=== PATIENT | female | born 1965 | race American Indian/Alaskan Native ===

== ENCOUNTER 2017-07-28 05:27 | Inpatient (IN) | payer BC ==
[2017-07-28] MEDS ORDERED: Scopolamine 1.5 MG Transdermal Patch TOP ONE (05:49)
[2017-07-28] MEDS ORDERED: Acetaminophen 500 MG Tab PO ONE (05:49)
[2017-07-28] MEDS ORDERED: Celecoxib 200 MG Cap PO ONE (05:50)
[2017-07-28] MEDS ORDERED: Gabapentin 300 MG Cap PO ONE (05:51)
[2017-07-28] MEDS ORDERED: cefOXitin 2 GM Vial ONE (06:48)
[2017-07-28] MEDS ORDERED: Dextrose 5%-Lactated Ringers 1,000 ML IV SCH (07:00)
[2017-07-28] MEDS ORDERED: Dexamethasone 4 MG/ML SDV ONE (07:16)
[2017-07-28] MEDS ORDERED: Glycopyrrolate 0.2 MG/ML 5 ML MDV ONE (07:16)
[2017-07-28] MEDS ORDERED: Ondansetron 4 MG/2 ML SDV ONE (07:16)
[2017-07-28] MEDS ORDERED: Rocuronium 50 MG/5 ML Vial ONE ×2 (07:16→09:03)
[2017-07-28] MEDS ORDERED: Succinylcholine 200 MG/10 ML MDV ONE (07:16)
[2017-07-28] MEDS ORDERED: Propofol 200 MG/20 ML SDV ONE (07:16)
[2017-07-28] MEDS ORDERED: Lactated Ringers 1,000 ML ONE ×2 (07:16→09:47)
[2017-07-28] MEDS ORDERED: Scopolamine 1.5 MG Transdermal Patch ONE (07:16)
[2017-07-28] MEDS ORDERED: Neostigmine Methylsulfate 1 MG/ML 5 ML Syringe ONE (07:16)
[2017-07-28] MEDS ORDERED: cefOXitin 2 GM in Sodium Chloride 0.9% 50 ML IV ONE (07:45)
[2017-07-28] MEDS ORDERED: Albuterol/Ipratropium 3.0-0.5 MG/3 ML Neb Soln NEB ONE (07:45)
[2017-07-28] MEDS ORDERED: Lidocaine 2% 100 MG/5 ML Syringe IVPUSH ONE (08:00)
[2017-07-28] MEDS ORDERED: Ropivacaine 54 ML, Dexamethasone 8 MG, EPINEPHrine 0.4 MG, Sodium Chloride 0.9% 23.6 ML NERVRT SCH ×4 (08:00)
[2017-07-28] MEDS ORDERED: Ketamine 500 MG/5 ML MDV IV SCH (08:00)
[2017-07-28] MEDS ORDERED: ceFAZolin 1 GM Vial ONE (08:04)
[2017-07-28] MEDS: cefOXitin 2 GM in Sodium Chloride 0.9% 50 ML IV ONE ×2 (08:16→09:30)
[2017-07-28] MEDS ORDERED: hydrOXYzine HCl 100 MG/2 ML SDV IM ONE (10:40)
[2017-07-28] MEDS ORDERED: fentaNYL 100 MCG/2 ML SDV IVPUSH ONE (11:00)
[2017-07-28] MEDS ORDERED: Albuterol/Ipratropium 3.0-0.5 MG/3 ML Neb Soln ONE (12:42)
[2017-07-28] MEDS ORDERED: HYDROmorphone 1 MG/ML Syringe IVPUSH ONE (12:45)
[2017-07-28] MEDS ORDERED: hydrOXYzine HCl 100 MG/2 ML SDV IM PRN (13:00)
[2017-07-28] MEDS ORDERED: Ondansetron 4 MG/2 ML SDV IVPUSH PRN (13:00)
[2017-07-28] MEDS ORDERED: diphenhydrAMINE 50 MG/ML SDV IVPUSH PRN (13:00)
[2017-07-28] MEDS ORDERED: SCOPOLAMINE PATCH ASK TOP SCH (13:00)
[2017-07-28] MEDS ORDERED: Pantoprazole 40 MG Vial IVPUSH SCH (13:00)
[2017-07-28] MEDS ORDERED: Labetalol 20 MG/4 ML Syringe IVPUSH PRN (13:00)
[2017-07-28] MEDS ORDERED: Albuterol/Ipratropium 3.0-0.5 MG/3 ML Neb Soln INH PRN (13:00)
[2017-07-28] MEDS ORDERED: Metoclopramide 10 MG/2 ML SDV IVPUSH PRN (13:00)
[2017-07-28] MEDS: Dextrose 5%-Lactated Ringers 1,000 ML IV SCH (13:19)
[2017-07-28] MEDS: Lidocaine 0.4%/D5W 2 GM/500 ML BAG IV SCH (13:27)
[2017-07-28] MEDS: cefOXitin 2 GM in Sodium Chloride 0.9% 50 ML IV SCH ×2 (13:52→20:34)
[2017-07-28] MEDS: Albuterol/Ipratropium 3.0-0.5 MG/3 ML Neb Soln INH SCH ×2 (14:38→22:22)
[2017-07-28] MEDS: Gabapentin 300 MG Cap PO SCH ×2 (15:09→22:13)
[2017-07-28] MEDS: Acetaminophen 325 MG Tab PO SCH ×2 (15:09→22:13)
[2017-07-28] MEDS: HYDROmorphone 1 MG/ML Syringe IVPUSH PRN ×2 (15:17→18:47)
[2017-07-28] MEDS ORDERED: MVI, Adult with Vitamin K 10 ML, Thiamine 200 MG, Chromium/Copper/Mang/Selen/Zn 1 ML in... IV SCH ×4 (16:00)
[2017-07-29] MEDS: Dextrose 5%-Lactated Ringers 1,000 ML IV SCH (00:07)
[2017-07-29] MEDS: Lidocaine 0.4%/D5W 2 GM/500 ML BAG IV SCH (00:43)
[2017-07-29] MEDS: cefOXitin 2 GM in Sodium Chloride 0.9% 50 ML IV SCH (02:15)
[2017-07-29] MEDS: HYDROmorphone 1 MG/ML Syringe IVPUSH PRN (02:15)
[2017-07-29] MEDS: Acetaminophen 325 MG Tab PO SCH ×2 (03:43→09:44)
[2017-07-29] MEDS: Gabapentin 300 MG Cap PO SCH (05:15)
[2017-07-29] MEDS: Albuterol/Ipratropium 3.0-0.5 MG/3 ML Neb Soln INH SCH ×4 (07:06→22:06)
[2017-07-29] MEDS: Celecoxib 200 MG Cap PO SCH (07:24)
[2017-07-29] MEDS ORDERED: Albuterol 8 GM Inhaler INH PRN (07:58)
[2017-07-29] MEDS ORDERED: Ondansetron 4 MG Tab.DIS PO PRN (08:00)
[2017-07-29] MEDS ORDERED: HYDROmorphone 2 MG Tab PO PRN (08:04)
--- NOTE | 2017-07-29 09:21 | PN ---
DATE OF SERVICE: 07/29/2017 SUBJECTIVE: Giselle is postop day 1 following a Andrez-en-Y gastric bypass surgery. Heparin was not started due to increased bleeding during surgery and she is prone to bleeding. She has been up ambulating frequently. Her output was 4 L. She has had oral intake of 840. Pain was managed with extra p.r.n. doses of Dilaudid during the night. She has no other concerns or questions today. OBJECTIVE: GENERAL: Giselle is a 51-year-old female. VITAL SIGNS: TPR is 99.5, 69, 16, blood pressure is 170/82. HEENT: Negative. NECK: Supple. HEART: Regular rate and rhythm. LUNGS: Clear. ABDOMEN: Dressings dry and intact. Abdominal binder is on. She has 1 EVELYN drain and it is draining a light pink serous drainage of 110 mL of a red drainage. ASSESSMENT: Status post Andrez-en-Y gastric bypass surgery. PLAN: IV infiltrated earlier this morning, so we will discontinue IV and IV meds. Dilaudid 2 mg 1 to 2 every 4 hours p.r.n. pain. Heparin as stated was not started due to patient being prone to bleeding. Her home medications were started. Gabapentin was changed to 600 mg p.o. t.i.d. which is her normal dose that she gets at home, trazodone 100 mg at bedtime, Effexor 75 mg p.o. b.i.d. She is getting the DuoNeb q.i.d. Dressing off, may shower. Good pulmonary toilet. We will evaluate p.r.n. or in a.m. Chasity Samayoa PA-C /[id number]
[2017-07-29] MEDS: Venlafaxine 75 MG Tab PO SCH ×2 (09:37→22:06)
[2017-07-29] MEDS: SCOPOLAMINE PATCH CHECK TOP SCH (09:39)
[2017-07-29] MEDS: Gabapentin 250 MG/5 ML Solution ML 470 ML Bottle PO SCH ×3 (09:43→22:06)
--- NOTE | 2017-07-29 13:33 | OR ---
DATE OF PROCEDURE: 07/28/2017 PREOPERATIVE DIAGNOSIS: Morbid obesity. POSTOPERATIVE DIAGNOSES: 1. Morbid obesity. 2. Marked hepatomegaly. 3. Paraesophageal diaphragmatic hernia. OPERATIVE PROCEDURES: 1. Laparoscopic Andrez-en-Y gastric bypass with long limb gastroenterostomy (07012). 2. Kelton-Cut needle liver biopsy (11212). 3. Repair of paraesophageal diaphragmatic hernia (53730). ANESTHESIA: General. AIRCRAFT ENGINE MECHANIC: Chasity Samayoa PA-C. INDICATION FOR PROCEDURE: This is a 51-year-old female presenting with longstanding morbid obesity and increasingly significant comorbidities. After preoperative evaluation and discussion, she wished to proceed with a gastric bypass procedure. Potential risks of procedure including bleeding, infection, leaks from various GI tract closures, problems with bowel obstruction over time, as well as possibility of cardiopulmonary, septic, or hemorrhagic complications leading to were all discussed, and the patient wishes to proceed. DETAILS OF PROCEDURE: The patient was taken to the operating room and placed in a supine position. After general endotracheal anesthesia was induced, she was converted to a lithotomy position. Under continuous ultrasound guidance, bilateral subcostal transversus abdominis plane blocks were placed using standard formula. The abdomen was then prepped and draped, and an orogastric tube was placed. At 15 cm inferior, 5 cm left of xiphoid process, transverse incision was made and the peritoneal cavity entered under direct vision with Optiview trocar and inflated to 15 mmHg pressure with CO2. Laparoscope was then reinserted. No underlying trocar insertion site injuries were seen. Following this, 5 additional trocars were placed across the upper mid abdomen, and general exploration was undertaken. The patient was noted to have marked hepatomegaly with liver volume being roughly 2 to 3 times normal and the liver grossly fatty infiltrated. Kelton-Cut needle biopsies were obtained from left lobe of liver. Minimal bleeding from the biopsy site was controlled with electrocautery. The omentum was then divided in the midline up to the level of the transverse colon. This allowed identification of the small bowel to the ligament of Treitz. Small bowel was then traced out 200 cm distal to that point and was divided transversely with a BRYAN stapler. Small bowel was then traced out an additional 150 cm, where the qjnc-aw-siou enteroenterostomy was accomplished with internal firing of the Endo-BRYAN 60 mm stapler. The common opening was then closed transversely with same stapler, angles anastomosed, and the mesenteric defect approximated with some 0 Ethibond stitch, along with fibrin sealant. The divided end of the Andrez limb was then from the mesentery for a few centimeters, which allowed an antecolic position of the Andrez limb up to the level of the gastroesophageal junction without tension. The liver was retracted anteriorly. The patient was noted to have a degree of paraesophageal diaphragmatic hernia with prolapse of some perigastric fat in the fundus of the stomach in a plane anterior to the course of the esophagus. This was reduced and the peritoneum overlying incised and reflected downward. An anterior repair of the diaphragmatic hernia was then accomplished with 0 Ethibond sutures, reinforced with PTFE pledgets. The gastrointestinal balloon catheter was then inflated to 15 mL and pulled up snugly against the EG junction. The gastric wall over the apex of the balloon was then marked with electrocautery, and the balloon catheter deflated and pulled up from the esophagus. The lesser omental tissue adjacent to the gastric cardia was incised, allowing dissection behind the stomach at that level. Pouch formation was then initiated with a transverse firing of the BRYAN stapler at the level of the cauterized marked in the gastric cardia. Pouch was then completed with 2 additional firings of BRYAN stapler up to and through the angle of His. Upon completion of the pouch, both staple lines were noted to be intact. The anvil of a 25 mm EEA stapler was then attached to Dawson sump type tube that was taken out through small opening in the gastric pouch and allowing the anvil likewise to be pulled down to within the gastric pouch. The divided end of the Andrez limb was then opened, and the main of body of EEA stapler was passed several centimeters into the lumen of the small bowel, brought up the anvil and united with it, thus creating the gastrojejunostomy. Upon removal of stapler, double donuts of mucosa were noted within it. The small bowel was closed off with a vascular staple line. Gastrojejunostomy was then reinforced with some 3-0 Vicryl seromuscular stitch, along with fibrin sealant. Leak test was accomplished with injection of 120 mL of air in the gastric pouch while submerged with cefoxitin-containing saline solution. No leaks were identified. A single Adam-Mendoza drain was then placed through the left lateral trocar site and positioned against the gastrojejunostomy and up into the splenic fossa. At that point, no further problems noted. Trocars were removed and the peritoneal cavity was deflated. Incisions were closed with some 4-0 Vicryl skin stitch and drain affixed with 4-0 Vicryl stitch as well. The patient was taken to the recovery room in satisfactory condition. Physician electrician station assistant, Chasity Samayoa, played an essential role in assisting in this case, helping to position the patient, retract structures as needed, as well as suturing and cutting sutures as indicated. Her presence improved patient safety and decreased operative time. Jean Marie Cohen MD /[id number]
[2017-07-29] MEDS: Acetaminophen Soln 650 MG/20.3 ML UD Cup PO SCH ×2 (15:04→22:06)
[2017-07-29] MEDS ORDERED: traZODone 50 MG Tab PO SCH (21:00)
[2017-07-30] MEDS: Acetaminophen Soln 650 MG/20.3 ML UD Cup PO SCH ×2 (04:11→09:01)
[2017-07-30] MEDS: Albuterol/Ipratropium 3.0-0.5 MG/3 ML Neb Soln INH SCH ×2 (07:18→10:56)
[2017-07-30] MEDS ORDERED: Cyanocobalamin (Vitamin B12) 1,000 MCG/ML SDV IM ONE (09:00)
[2017-07-30] MEDS: Venlafaxine 75 MG Tab PO SCH (09:03)
[2017-07-30] MEDS: Celecoxib 200 MG Cap PO SCH (09:03)
[2017-07-30] MEDS: SCOPOLAMINE PATCH CHECK TOP SCH (09:13)
[2017-07-30] MEDS: Gabapentin 250 MG/5 ML Solution ML 470 ML Bottle PO SCH (09:27)
--- NOTE | 2017-07-30 10:15 | DISCH ---
ADMISSION DIAGNOSES: 1. Morbid obesity, BMI 36.5. 2. Obstructive sleep apnea with use of CPAP, impaired glucose tolerance. 3. Fibromyalgia. 4. Osteoarthritis. DISCHARGE DIAGNOSES: 1. Laparoscopic Andrez-en-Y gastric bypass surgery with long limb gastroenterostomy. 2. Kelton-Cut needle liver biopsy. 3. Repair of paraesophageal diaphragmatic hernia for morbid obesity, marked hepatomegaly, and periesophageal diaphragmatic hernia. HISTORY: Giselle Mao is a 51-year-old female with longstanding history of morbid obesity and increasingly significant comorbidities. After preoperative evaluation and discussion of possible risks and possible complications, she wished to proceed with surgical procedure. HOSPITAL COURSE: Giselle had her surgery on 07/28/2017. She had no operative complications. On postop day #1, she was started on a step-2 gastric bypass diet without cereal. Her activity was good. Vital signs were stable. Oral intake adequate. She received dietary instructions. On postop day #2, she was ready to be discharged to home. DISCHARGE PHYSICAL EXAMINATION: GENERAL: Giselle Mao is a 51-year-old female. VITAL SIGNS: Height is 5 feet 8 inches. Weight is 240 pounds. BMI is 36.5. TPR 99, 98, 20. Blood pressure 144/73. HEENT: Negative. NECK: Supple. HEART: Regular rate and rhythm. LUNGS: Clear. ABDOMEN: Sutures look good. Abdominal binder has been on, 4 x 4, over EVELYN drain, after removal. EXTREMITIES: Without peripheral edema. DISPOSITION: Discharged to home. CONDITION: Stable and improving. FOLLOWUP: With Chasity Samayoa PA-C, on 08/07/2017 at 10:00 a.m. DISCHARGE MEDICATIONS: 1. Tylenol 650 mg/20.3 mL q.6 hours x14 days. 2. Zofran ODT 4 mg q.4 hours p.r.n. nausea, sublingual, #30. She is to resume her home medications of Ventolin, albuterol inhaler one puff as directed for shortness of breath, Celebrex 200 mg p.o. daily for 14 days, Neurontin 600 mg oral 3 times a day, Effexor 75 mg oral twice daily, and trazodone 100 mg at bedtime. DISCHARGE DIET: Step-2 gastric bypass diet without cereal. Drink 8 to 10 glasses of water a day. ACTIVITY: As tolerated. To walk at least 6 times daily inside your home. Lifting, no lifting greater than 10 pounds for 2 weeks. Driving, do not drive for 1 week. May shower. Keep operative site clean and dry. Wear abdominal binder for 2 weeks and then as tolerated. Notify provider if any fever, increased pain, nausea, or vomiting. SPECIAL INSTRUCTIONS: Use incentive spirometer 10 times in a row every hour while awake and keep a record of protein and liquid intake daily and bring to clinic appointments.
[2017-07-30 10:41] VITALS: BP 148/77
== END 2017-07-30 10:50 | disposition home or self-care (01) | DRG 403 ==
LOC: JP.SDS 05:27 → JP.MS 05:27 → EDSTATUS 07:30 → JP.2SS 10:15
PROVIDERS: ADMIT Surgery; ATTEND Surgery
PROC: 0D164ZA Bypass Stomach to Jejunum, Percutaneous Endoscopic Approach (ICD-10-PCS; principal; 2017-07-28)
PROC: 3E0T3BZ Introduction of Anesthetic Agent into Peripheral Nerves and Plexi, Percutaneous Approach (ICD-10-PCS; 2017-07-28)
PROC: 0FB24ZX Excision of Left Lobe Liver, Percutaneous Endoscopic Approach, Diagnostic (ICD-10-PCS; 2017-07-28)
PROC: 0BQS4ZZ (ICD-10-PCS; 2017-07-28)
PROC: 0BQR4ZZ (ICD-10-PCS; 2017-07-28)
DX: E66.01 Morbid (severe) obesity due to excess calories (principal); Z68.37 Body mass index [BMI] 37.0-37.9, adult; R16.0 Hepatomegaly, not elsewhere classified; K44.9 Diaphragmatic hernia without obstruction or gangrene; K76.0 Fatty (change of) liver, not elsewhere classified; G47.33 Obstructive sleep apnea (adult) (pediatric); R73.02 Impaired glucose tolerance (oral); M79.7 Fibromyalgia; M19.90 Unspecified osteoarthritis, unspecified site; Z91.041 Radiographic dye allergy status; Z88.5 Allergy status to narcotic agent
CPT/HCPCS: 36415; 82962; 83036; 86850; 86900; 86901; 88307; 88313; 94640-76; A9270-GY; C9113; J0171; J0330; J0690; J0694; J1100; J1170; J2001; J2405; J2704; J2710; J2795; J3010; J3410; J3411; J3420; J7030; J7042; J7050; J7120; J7620

== ENCOUNTER 2018-07-11 19:17 | Inpatient (IN) | payer BC ==
[2018-07-11] MEDS ORDERED: Ondansetron 4 MG/2 ML SDV IV PRN (19:40)
[2018-07-11] MEDS ORDERED: Naloxone 0.4 MG/ML SDV IVPUSH PRN (19:49)
[2018-07-11] MEDS ORDERED: HYDROmorphone/Normal Saline 15 MG/30 ML PCA IV SCH (20:00)
[2018-07-11] MEDS: Dextrose 5%-Lactated Ringers 1,000 ML IV SCH (20:36)
[2018-07-12] MEDS: Dextrose 5%-Lactated Ringers 1,000 ML IV SCH (04:14)
[2018-07-12] MEDS ORDERED: Meropenem 500 MG SDV ONE (06:57)
[2018-07-12] MEDS ORDERED: Succinylcholine 200 MG/10 ML MDV ONE (07:10)
[2018-07-12] MEDS ORDERED: Ondansetron 4 MG/2 ML SDV ONE (07:10)
[2018-07-12] MEDS ORDERED: Dexamethasone 4 MG/ML SDV ONE (07:10)
[2018-07-12] MEDS ORDERED: Glycopyrrolate 0.2 MG/ML 5 ML MDV ONE (07:10)
[2018-07-12] MEDS ORDERED: Rocuronium 50 MG/5 ML Vial ONE (07:10)
[2018-07-12] MEDS ORDERED: Neostigmine Methylsulfate 1 MG/ML 5 ML Syringe ONE (07:10)
[2018-07-12] MEDS ORDERED: Propofol 200 MG/20 ML SDV ONE (07:10)
[2018-07-12] MEDS: cefOXitin 2 GM in Sodium Chloride 0.9% 50 ML IV ONE ×2 (07:45→10:49)
[2018-07-12] MEDS ORDERED: Ketamine 500 MG/5 ML MDV IV SCH (08:00)
[2018-07-12] MEDS ORDERED: Ropivacaine 35 ML, Dexamethasone 8 MG, EPINEPHrine 0.4 MG, Sodium Chloride 0.9% 42.6 ML NERVRT SCH ×4 (08:00)
[2018-07-12] MEDS ORDERED: Lidocaine 2% 100 MG/5 ML Syringe IVPUSH ONE (08:00)
[2018-07-12] MEDS ORDERED: Lactated Ringers 1,000 ML ONE (08:32)
[2018-07-12] MEDS ORDERED: Sugammadex Sodium 200 MG/2 ML VIAL ONE (08:54)
[2018-07-12] MEDS ORDERED: Dextrose 5%-Lactated Ringers 1,000 ML IV SCH (10:30)
[2018-07-12] MEDS: Lidocaine 0.4%/D5W 2 GM/500 ML BAG IV SCH (10:49)
[2018-07-12] MEDS ORDERED: diphenhydrAMINE 50 MG/ML SDV IVPUSH PRN (11:00)
[2018-07-12] MEDS ORDERED: Metoclopramide 10 MG/2 ML SDV IVPUSH PRN (11:00)
[2018-07-12] MEDS ORDERED: hydrOXYzine HCl 100 MG/2 ML SDV IM PRN (11:00)
[2018-07-12] MEDS ORDERED: Labetalol 20 MG/4 ML Syringe IVPUSH PRN (11:00)
[2018-07-12] MEDS: cefOXitin 2 GM in Sodium Chloride 0.9% 50 ML IV SCH ×2 (12:00→18:50)
[2018-07-12] MEDS: Acetaminophen Soln 650 MG/20.3 ML UD Cup PO SCH ×2 (13:17→19:51)
[2018-07-12] MEDS: Gabapentin 250 MG/5 ML Solution ML 470 ML Bottle PO SCH ×2 (13:18→21:36)
[2018-07-12] MEDS ORDERED: Pantoprazole 40 MG Vial IVPUSH SCH (14:00)
[2018-07-12] MEDS: Heparin Sodium 5,000 Units/ML Vial SUBCUT SCH (15:24)
--- NOTE | 2018-07-12 15:46 | PN ---
DATE OF SERVICE: 07/12/2018 SUBJECTIVE: The patient was transferred from [place] last evening with a small bowel volvulus. She has been comfortable overnight and is with an n.p.o. status. Plan will be to proceed with an open laparotomy today and release of bowel obstruction, closure of mesenteric defects, and bowel resection as indicated. We will also check some bariatric labs this morning. Potential risks of the procedure were reviewed with the patient and she wishes to proceed. Jean Marie Cohen MD /[id number]
[2018-07-12] MEDS ORDERED: MVI, Adult with Vitamin K 10 ML, Thiamine 200 MG, Chromium/Copper/Mang/Selen/Zn 1 ML in... IV SCH ×4 (16:00)
[2018-07-12] MEDS: traZODone 50 MG Tab (PTOM) PO SCH (21:36)
[2018-07-12] MEDS: VENLAFAXINE 75 MG PO SCH (21:36)
[2018-07-13] MEDS: cefOXitin 2 GM in Sodium Chloride 0.9% 50 ML IV SCH (01:17)
[2018-07-13] MEDS: Acetaminophen Soln 650 MG/20.3 ML UD Cup PO SCH ×4 (01:18→20:29)
[2018-07-13] MEDS: Heparin Sodium 5,000 Units/ML Vial SUBCUT SCH ×2 (04:49→16:29)
[2018-07-13] MEDS: Celecoxib 200 MG Cap PO SCH (07:12)
[2018-07-13] MEDS ORDERED: Dextrose 5%-Lactated Ringers 1,000 ML IV SCH (07:30)
[2018-07-13] MEDS: HYDROmorphone 2 MG Tab PO PRN ×4 (07:53→20:28)
[2018-07-13] MEDS: VENLAFAXINE 75 MG PO SCH ×2 (09:42→20:29)
[2018-07-13] MEDS: Gabapentin 250 MG/5 ML Solution ML 470 ML Bottle PO SCH ×3 (09:44→20:33)
[2018-07-13] MEDS: Lidocaine 0.4%/D5W 2 GM/500 ML BAG IV SCH (09:45)
[2018-07-13] MEDS ORDERED: Pantoprazole 40 MG Tab.CR PO SCH (14:00)
[2018-07-13] MEDS ORDERED: MVI, Adult with Vitamin K 10 ML, Thiamine 200 MG, Chromium/Copper/Mang/Selen/Zn 1 ML in... IV SCH ×4 (16:00)
[2018-07-13] MEDS: traZODone 50 MG Tab (PTOM) PO SCH (20:29)
[2018-07-14] MEDS: Acetaminophen Soln 650 MG/20.3 ML UD Cup PO SCH ×2 (01:36→07:13)
[2018-07-14] MEDS: HYDROmorphone 2 MG Tab PO PRN ×2 (01:36→05:46)
[2018-07-14] MEDS: Heparin Sodium 5,000 Units/ML Vial SUBCUT SCH (03:40)
[2018-07-14] MEDS: Celecoxib 200 MG Cap PO SCH (07:13)
[2018-07-14 07:33] VITALS: BP 141/77
[2018-07-14] MEDS ORDERED: Cyanocobalamin (Vitamin B12) 1,000 MCG/ML SDV IM ONE (09:00)
[2018-07-14] MEDS: VENLAFAXINE 75 MG PO SCH (09:06)
[2018-07-14] MEDS: Gabapentin 250 MG/5 ML Solution ML 470 ML Bottle PO SCH (09:13)
--- NOTE | 2018-07-14 11:48 | PN ---
DATE OF SERVICE: 07/13/2018 The patient has been afebrile with stable vital signs. No major problems have been noted overnight. The pain control appears to be fairly good. We will switch over to oral Dilaudid, in addition to the Celebrex, gabapentin, and Tylenol today. We will leave her on the step-3 diet and have her get in the shower. She may be ready for discharge home tomorrow. Intact PTH level is still pending. Jean Marie Cohen MD /[id number]
--- NOTE | 2018-07-14 14:09 | DISCH ---
FINAL DIAGNOSES: 1. Small bowel volvulus with associated internal hernia. 2. Incarcerated incisional hernia. 3. Extensive intraperitoneal adhesions. 4. Bariatric surgery status, status post previous gastric bypass. SECONDARY DIAGNOSES: 1. Fibromyalgia. 2. Impaired glucose tolerance. 3. Obstructive sleep apnea. OPERATIVE PROCEDURES: This was done on 07/12/2018; exploratory laparotomy with lysis of adhesions and: 1. Reduction of small bowel volvulus and closure of internal hernia. 2. Repair of incarcerated incisional hernia. 3. Mobilization of omentum into pelvis to limit recurrent adhesion formation. HOSPITAL COURSE: This is a 52-year-old, status post previous Andrez-en-Y gastric bypass, presenting with a picture of abdominal pain and workup consistent of a small bowel volvulus. She was transferred from [facility] and admitted here, and subsequently underwent exploratory laparotomy with the above-noted procedures. Postoperatively, no major problems were noted. She is presently tolerating the soft solid diet satisfactorily and pain control is adequate. She will be sent home with her usual home medications plus Dilaudid 2 to 4 mg p.o. q.4 hours p.r.n. pain, #50; Tylenol 650 mg p.o. q.i.d. p.r.n. pain; and she will be sent home with 2 doses of milk of magnesia to take p.r.n. bowels. Follow up will be with Chasity Samayoa at [facility] on 07/21/2018.
--- NOTE | 2018-07-20 09:57 | OR ---
DATE OF PROCEDURE: 07/12/2018 PREOPERATIVE DIAGNOSIS: Small bowel obstruction. POSTOPERATIVE DIAGNOSES: 1. Small bowel obstruction associated with small bowel volvulus through internal hernia. 2. Incarcerated incisional hernia. 3. Extensive intraabdominal adhesions. OPERATIVE PROCEDURES: Exploratory laparotomy with lysis of adhesions and; 1. Reduction of small bowel volvulus and closure of internal hernia (30237). 2. Repair of incarcerated incisional hernia (91396). 3. Mobilization of omentum into pelvis to displace viscera from pelvic and abdominal wall to limit recurrent adhesion formation (06029). ANESTHESIA: General. INDICATIONS FOR PROCEDURE: This is a 52-year-old presenting with a picture of small-bowel obstruction, status post previous gastric bypass in July 2017. The patient was admitted with increasing abdominal pain and workup was consistent with small-bowel obstruction with suggestion of a small bowel volvulus. The patient was transferred from [facility] and admitted overnight and is undergoing exploratory laparotomy. The bowel distention I think argues against a laparoscopic approach. Potential risks of the procedure including bleeding, infection, injury to underlying viscera, possible need for resection of the bowel were all gone over along with a remote possibility of cardiopulmonary, septic, or hemorrhagic complications leading to and the patient wishes to proceed. DETAILS OF PROCEDURE: The patient was taken to the operating room, and after general endotracheal anesthesia was induced, was kept in a supine position. Amato catheter was inserted and the abdomen was prepped and draped. Bilateral subcostal transverse abdominis plane blocks were then placed using continuous ultrasound guidance. A midline incision from the umbilicus roughly a handsbreadth toward the xiphoid was then made and carried down through the full thickness of the abdominal wall. On entering the peritoneal cavity, the patient was noted to have a length of bowel that had a vague knox appearance consistent with some venous hypertension and an exploration revealed a volvulus underneath the mesenteric defect associated with the jejunojejunostomy with the volvulus having gone from a right to left direction. The ileocecal valve was identified and the volvulus was then gradually reduced, and as the bowel came into correct position, it all became pink and it all appeared to be well vascularized. Mesenteric defect was then approximated with a 2-0 silk stitch. No other significant mesenteric defect or other problems were noted at this point. On exploring the abdomen, the patient was noted to have an incarcerated hernia containing a bit of omentum. This was off to the side, perhaps a centimeter away from the midline incision on the right side of the abdomen, likely related to her previous trocar site. This was reduced. Prior to entering the abdomen, there was quite a bit in the way of adhesion formation and now with the new incision, the omentum was mobilized downward into the pelvis where it was sutured in the depths of the pelvis with some 3-0 Vicryl stitch. This would prevent the small bowel and viscera from coming up against the abdominal and pelvic pfeiffer to limit recurrent adhesion formation to those areas. The midline fascia was then approximated with a #2 Vicryl stitch. This included repair of the incisional hernia and the subcutaneous tissue was reapproximated with 2 layers of 3-0 Vicryl stitch and the skin with kathryn. The patient was taken to the recovery room in satisfactory condition. There were no evident complications. Jean Marie Cohen MD /[id number]
== END 2018-07-14 09:28 | disposition home or self-care (01) | DRG 223 ==
LOC: JP.MS 19:17
PROVIDERS: ADMIT Surgery; ATTEND Surgery
PROC: 0DS80ZZ Reposition Small Intestine, Open Approach (ICD-10-PCS; principal; 2018-07-12)
PROC: 0WQF0ZZ Repair Abdominal Wall, Open Approach (ICD-10-PCS; 2018-07-12)
PROC: 0WQF0ZZ Repair Abdominal Wall, Open Approach (ICD-10-PCS; 2018-07-12)
PROC: 0DNU0ZZ Release Omentum, Open Approach (ICD-10-PCS; 2018-07-12)
PROC: 3E0T3BZ Introduction of Anesthetic Agent into Peripheral Nerves and Plexi, Percutaneous Approach (ICD-10-PCS; 2018-07-12)
DX: K56.2 Volvulus (principal); K46.9 Unspecified abdominal hernia without obstruction or gangrene; K43.0 Incisional hernia with obstruction, without gangrene; K66.0 Peritoneal adhesions (postprocedural) (postinfection); Z98.84 Bariatric surgery status; Z98.0 Intestinal bypass and anastomosis status; E53.8 Deficiency of other specified B group vitamins; M79.7 Fibromyalgia; G47.33 Obstructive sleep apnea (adult) (pediatric); R73.02 Impaired glucose tolerance (oral)
CPT/HCPCS: 36415; 80053; 82607; 82728; 82746; 83735; 83970; 84100; 84425; 88302; 94762; A9270-GY; C9113; C9399; J0171; J0330; J0694; J1100; J1170; J1644; J2001; J2020; J2185; J2405; J2704; J2710; J2795; J3010; J3411; J3420; J3490; J7030; J7042; J7050; J7120